=== PATIENT | male | born 1955 | race American Indian/Alaskan Native ===

== ENCOUNTER 2021-08-29 07:43 | Emergency (ER) | payer BC, MEDICARE ==
--- NOTE | 2021-08-29 08:26 | Emergency Department Report ---
ED Headache HPI - General Chief Complaint: Headache Stated Complaint: PAIN IN HEAD - History of Present Illness Initial Comments: 65-year-old male presents to the ED with right shoulder and neck pain that radiates to the back of his head x6 days. Patient states the pain has worsened over the last 3 days. He states taking Tylenol with mild relief. He states pain feel more like stiffness when he wake up in the morning as if he slept wrong. Patient states since arriving to the ER no longer have a headache. Patient states moving his neck in full range of motion helps with the pain. Patient states that next discomfort is current 2 out of 10. Patient denies any blurred vision, fever nausea or vomiting at present. Patient is alert and oriented x3. No acute distress noted. No ill appearance noted Associated Symptoms: denies symptoms Allergies/Adverse Reactions: Allergies No Known Allergies Allergy (Verified 12/21/14 10:06) Home Medications: Ambulatory Orders oxyCODONE /ACETAMINOPHEN [Percocet 5/325 mg] 1 tab PO Q6HR PRN #20 tablet 12/21/14 NIFEdipine XL [Procardia Xl] 01/23/15 Telmisartan-Hctz 80-12.5 mg Tb 01/23/15 Azithromycin [Zithromax Z-CHANDA] 0 mg PO DAILY #1 tab 04/25/18 Prednisone [predniSONE 10 mg (6-Day Pack, 21 Tabs)] 10 mg PO .TAPER #1 tab.ds.pk 04/25/18 carvediloL [Coreg] 12.5 mg PO BID #60 tablet 04/25/18 Cyclobenzaprine HCl [Flexeril 5 MG TAB] 5 mg PO TID 15 Days #30 tab 08/29/21 predniSONE [Deltasone] 20 mg PO QDAY 3 Days #3 tab 08/29/21 ED Review of Systems ROS: Stated complaint: PAIN IN HEAD Other details as noted in HPI Constitutional: denies: chills, fever Eyes: denies: eye pain, eye discharge, vision change ENT: denies: ear pain, throat pain Respiratory: denies: cough, shortness of breath, wheezing Cardiovascular: denies: chest pain, palpitations Endocrine: no symptoms reported Gastrointestinal: denies: abdominal pain, nausea, diarrhea Genitourinary: denies: urgency, dysuria Musculoskeletal: denies: back pain, joint swelling, arthralgia Skin: denies: rash, lesions Neurological: denies: headache, weakness, paresthesias Psychiatric: denies: anxiety, depression Hematological/Lymphatic: denies: easy bleeding, easy bruising ED Past Medical Hx - Past Medical History Previous Medical History?: Yes Hx Hypertension: Yes Hx COPD: Yes Additional medical history: hypercholesterolemia, sarcoidosis - Surgical History Past Surgical History?: No - Social History Smoking Status: Never Smoker Substance Use Type: None - Medications Home Medications: Home Medications Medication Instructions Recorded Confirmed Last Taken Type oxyCODONE /ACETAMINOPHEN [Percocet 1 tab PO Q6HR PRN #20 tablet 12/21/14 01/23/15 01/23/15 05:45 Rx 5/325 mg] NIFEdipine XL [Procardia Xl] 01/23/15 01/23/15 01/23/15 05:45 History Telmisartan-Hctz 80-12.5 mg Tb 01/23/15 01/23/15 01/23/15 05:45 History Azithromycin [Zithromax Z-CHANDA] 0 mg PO DAILY #1 tab 04/25/18 Unknown Rx Prednisone [predniSONE 10 mg 10 mg PO .TAPER #1 tab.ds.pk 04/25/18 Unknown Rx (6-Day Pack, 21 Tabs)] carvediloL [Coreg] 12.5 mg PO BID #60 tablet 04/25/18 Unknown Rx Cyclobenzaprine HCl [Flexeril 5 MG 5 mg PO TID 15 Days #30 tab 08/29/21 Unknown Rx TAB] predniSONE [Deltasone] 20 mg PO QDAY 3 Days #3 tab 08/29/21 Unknown Rx ED Physical Exam - General Limitations: No Limitations General appearance: alert, in no apparent distress - Head Head exam: Present: atraumatic, normocephalic - Eye Eye exam: Present: normal appearance - ENT ENT exam: Present: mucous membranes moist - Neck Neck exam: Present: normal inspection - Respiratory Respiratory exam: Present: normal lung sounds bilaterally. Absent: respiratory distress - Cardiovascular Cardiovascular Exam: Present: regular rate, normal rhythm. Absent: systolic murmur, diastolic murmur, rubs, gallop - GI/Abdominal GI/Abdominal exam: Present: soft, normal bowel sounds - Rectal Rectal exam: Present: deferred - Extremities Exam Extremities exam: Present: normal inspection - Back Exam Back exam: Present: normal inspection - Neurological Exam Neurological exam: Present: alert, oriented X3 - Psychiatric Psychiatric exam: Present: normal affect, normal mood - Skin Skin exam: Present: warm, dry, intact, normal color. Absent: rash ED Course Vital Signs 08/29/21 07:50 Temperature 98.2 F Pulse Rate 72 Respiratory 16 Rate Blood Pressure 145/95 [Left] O2 Sat by Pulse 98 Oximetry ED Medical Decision Making - Medical Decision Making 65-year-old male presents to the ED with right shoulder and neck pain that radiates to the back of his head x6 days. Patient states the pain has worsened over the last 3 days. He states taking Tylenol with mild relief. He states pain feel more like stiffness when he wake up in the morning as if he slept wrong. Patient states since arriving to the ER no longer have a headache. Patient states moving his neck in full range of motion helps with the pain. Patient states that next discomfort is current 2 out of 10. Patient denies any blurred vision, fever nausea or vomiting at present. Patient is alert and oriented x3. No acute distress noted. No ill appearance noted. Physical examination is unremarkable. Will give patient some Flexeril and explained patient to change mattress on bed. Rechecked the patient is resting quietly quietly and comfortable and feeling better. I discussed the results of diagnostic study, my clinical impression and the plan for further treatment with the patient. Patient agrees with plan and discharge at this present time. All question addressed. I have given the patient instruction regarding a diagnosis ,expectation ,follow- up and return precaution. I explained to the patient that emergent condition may arise and to return to the ED for new worsen and any new persisting condition. I have explained the importance of following up with the primary care physician or referral physician listed below has instructed. The patient verbalized understanding of discharge instruction. Critical care attestation.: If time is entered above; I have spent that time in minutes in the direct care of this critically ill patient, excluding procedure time. ED Disposition Clinical Impression: Cervical radicular pain Headache Qualifiers: Headache type: tension-type Headache chronicity pattern: acute headache Intractability: not intractable Qualified Code(s): G44.209 - Tension-type headache, unspecified, not intractable Disposition: 01 HOME / SELF CARE / HOMELESS Is pt being admited?: No Does the pt Need Aspirin: No Condition: Stable Instructions: Radicular Pain, Tension Headache, Adult, [id number] Additional Instructions: May take [id number] Tylenol Take medication as prescribed Return to the ED for any worsening symptom Prescriptions: predniSONE [Deltasone] 20 mg PO QDAY 3 Days #3 tab Cyclobenzaprine HCl [Flexeril 5 MG TAB] 5 mg PO TID 15 Days #30 tab Referrals: ANAND MACK II, MD [Staff Physician] - 3-5 Days
[2021-08-29] MEDS ORDERED: ACETAMINOPHEN 500 MG TAB PO ONE (08:28)
[2021-08-29] MEDS ORDERED: dexAMETHasone 4 MG/ML VIAL IM ONE (08:29)
[2021-08-29 09:03] VITALS: BP 117/74
== END 2021-08-29 08:46 | disposition home or self-care (01) ==
LOC: ED 07:43
DX: M54.12 Radiculopathy, cervical region (principal); R51.9 Headache, unspecified; I10 Essential (primary) hypertension
CPT/HCPCS: 96372; 99282; J1100